=== PATIENT | female | born 1985 | race African-American/Black ===

== ENCOUNTER 2018-10-18 22:56 | Emergency (ER) | payer MEDICAID ==
[~2018-10-18] VITALS: Ht 167.6 cm; Wt 64.0 kg
[2018-10-18 22:57] VITALS: BP 146/72
== END 2018-10-19 01:28 | disposition home or self-care (01) ==
LOC: ER 23:25
DX: Z76.89 Persons encountering health services in other specified circumstances (principal); R03.0 Elevated blood-pressure reading, without diagnosis of hypertension
CPT/HCPCS: 99283

== ENCOUNTER 2019-03-07 06:15 | Emergency (ER) | payer MEDICAID ==
[~2019-03-07] VITALS: Ht 165.1 cm; Wt 70.0 kg
[2019-03-07 07:25] VITALS: BP 99/75
[2019-03-07] MEDS ORDERED: LEVETIRACETAM 1000MG/100ML 100 ML IV ONE (07:30)
== END 2019-03-07 07:50 | disposition left against medical advice (07) ==
LOC: ER 06:15
DX: G40.909 Epilepsy, unspecified, not intractable, without status epilepticus (principal); R22.0 Localized swelling, mass and lump, head; Z91.81 History of falling
CPT/HCPCS: 99283

== ENCOUNTER 2019-03-07 13:49 | Emergency (ER) | payer MEDICAID ==
[~2019-03-07] VITALS: Ht 165.1 cm; Wt 76.0 kg
[2019-03-07 13:54] VITALS: BP 129/79
== END 2019-03-07 15:46 | disposition left against medical advice (07) ==
LOC: ER 13:49
DX: Z53.21 Procedure and treatment not carried out due to patient leaving prior to being seen by health care provider (principal)

== ENCOUNTER 2019-04-19 22:41 | Emergency (ER) | payer MEDICAID ==
[~2019-04-19] VITALS: Ht 170.2 cm; Wt 72.0 kg
[2019-04-19 23:34] LABS: BASOPHILS % 0.9 % (0.0-2.0); EOSINOPHILS % 0.8 % (0.0-5.0); HEMATOCRIT. 40.2 % (36.0-48.0); HEMOGLOBIN. 13.3 g/dL (12.0-16.0); LYMPHOCYTES % 21.2 % (20.0-50.0); MEAN CORPUSCULAR HEMOGLOBIN 30.9 pg (28.0-32.0); MEAN CORPUSCULAR VOLUME 93.1 fL (81.0-99.0); MEAN PLATELET VOLUME 8.3 fl (7.4-10.4); MONOCYTES % 13.2 % (2.0-8.0); NEUTROPHILS % 63.9 % (40.0-76.0); PLATELET 300 x1000/uL (130-400); RED BLOOD CELL COUNT 4.31 mill/uL (4.2-5.4); RED CELL DISTRIBUTION WIDTH 13.9 % (11.6-14.6)
[2019-04-19 23:43] LABS: CLARITY URINE CLEAR (CLEAR); COLOR URINE YELLOW (YELLOW); KETONES URINE 2+ (NEGATIVE); LEUKOCYTE ESTERASE URINE NEGATIVE (NEGATIVE); NITRITE URINE NEGATIVE (NEGATIVE); OCCULT BLOOD URINE NEGATIVE (NEGATIVE); PROTEIN URINE NEGATIVE (NEGATIVE); SPECIFIC GRAVITY URINE 1.024 (1.005-1.030); UROBILINOGEN URINE 0.2 E.U./dL (0.2-1.0)
[2019-04-19 23:52] LABS: CHLORIDE 110 mEq/L (98-107)
[2019-04-19 23:56] LABS: ETHANOL BLOOD < 10 mg/dL
[2019-04-20] MEDS ORDERED: LEVETIRACETAM 500MG TABLET PO ONE (00:30)
[2019-04-20 02:50] LABS: *AMPHETAMINES SCREEN URINE NEGATIVE (NEGATIVE); *BARBITURATES SCREEN URINE NEGATIVE (NEGATIVE); *BENZODIAZEPINES SCREEN URINE NEGATIVE (NEGATIVE); *COCAINE SCREEN URINE NEGATIVE (NEGATIVE)
[2019-04-20 02:51] LABS: METHADONE URINE SCREEN NEGATIVE (NEGATIVE); OPIATES URINE SCREEN NEGATIVE (NEGATIVE); PHENCYCLIDINE URINE SCREEN NEGATIVE (NEGATIVE)
[2019-04-20 03:07] LABS: CANNABINOID URINE SCREEN PRESUMTIVE POSITIVE (NEGATIVE)
[2019-04-20 03:27] VITALS: BP 100/52
== END 2019-04-20 05:36 | disposition home or self-care (01) ==
LOC: ER 22:41
DX: G40.909 Epilepsy, unspecified, not intractable, without status epilepticus (principal)
CPT/HCPCS: 36415; 80053; 80185; 80305; 80320; 81003; 81025; 82542; 82962; 85025; 99283; G0480

== ENCOUNTER 2019-05-18 08:12 | Emergency (ER) | payer MEDICAID ==
[~2019-05-18] VITALS: Ht 167.6 cm; Wt 54.0 kg
[2019-05-18] MEDS ORDERED: SODIUM CHLORIDE 0.9% 1,000 ML IV ONE (09:11)
[2019-05-18] MEDS ORDERED: LEVETIRACETAM 1000MG/100ML 100 ML IV ONE ×2 (09:15→11:00)
[2019-05-18 09:30] VITALS: BP 130/81
[2019-05-18 09:40] LABS: CLARITY URINE CLEAR (CLEAR); COLOR URINE YELLOW (YELLOW); KETONES URINE NEGATIVE (NEGATIVE); LEUKOCYTE ESTERASE URINE NEGATIVE (NEGATIVE); NITRITE URINE NEGATIVE (NEGATIVE); OCCULT BLOOD URINE NEGATIVE (NEGATIVE); PH URINE 6.5 (4.5-8.0); PROTEIN URINE NEGATIVE (NEGATIVE); SPECIFIC GRAVITY URINE 1.021 (1.005-1.030); UROBILINOGEN URINE 0.2 E.U./dL (0.2-1.0)
[2019-05-18 09:48] LABS: BASOPHILS % 0.5 % (0.0-2.0); EOSINOPHILS % 0.2 % (0.0-5.0); HEMATOCRIT. 36.8 % (36.0-48.0); HEMOGLOBIN. 12.7 g/dL (12.0-16.0); LYMPHOCYTES % 12.9 % (20.0-50.0); MEAN CORPUSCULAR HEMOGLOBIN 31.9 pg (28.0-32.0); MEAN CORPUSCULAR VOLUME 92.6 fL (81.0-99.0); MEAN PLATELET VOLUME 7.6 fl (7.4-10.4); MONOCYTES % 6.1 % (2.0-8.0); NEUTROPHILS % 80.3 % (40.0-76.0); PLATELET 324 x1000/uL (130-400); RED BLOOD CELL COUNT 3.97 mill/uL (4.2-5.4); RED CELL DISTRIBUTION WIDTH 13.9 % (11.6-14.6)
[2019-05-18 09:53] LABS: *AMPHETAMINES SCREEN URINE NEGATIVE (NEGATIVE); *BARBITURATES SCREEN URINE NEGATIVE (NEGATIVE); *BENZODIAZEPINES SCREEN URINE NEGATIVE (NEGATIVE); *COCAINE SCREEN URINE NEGATIVE (NEGATIVE)
[2019-05-18 09:54] LABS: METHADONE URINE SCREEN NEGATIVE (NEGATIVE); OPIATES URINE SCREEN NEGATIVE (NEGATIVE); PHENCYCLIDINE URINE SCREEN NEGATIVE (NEGATIVE)
[2019-05-18 09:55] LABS: CHLORIDE 110 mEq/L (98-107)
[2019-05-18 09:57] LABS: CANNABINOID URINE SCREEN PRESUMTIVE POSITIVE (NEGATIVE)
[2019-05-18 09:59] LABS: ETHANOL BLOOD < 10 mg/dL
[2019-05-18 10:04] LABS: HCG SCREEN NEGATIVE
[2019-05-18 10:06] LABS: B-HCG QUANTITATIVE < 1 mIU/mL (<3)
[2019-05-18] MEDS ORDERED: KETOROLAC 30MG/ML VIAL IV ONE (11:30)
== END 2019-05-18 13:57 | disposition left against medical advice (07) ==
LOC: ER 08:18
DX: R56.9 Unspecified convulsions (principal); M54.2 Cervicalgia; F12.10 Cannabis abuse, uncomplicated
CPT/HCPCS: 36415; 70486; 72125; 80053; 80305; 80320; 81003; 81025; 84702; 84703; 85025; 96365; 96375; 99285; J1885; J1953; J7030; G0480

== ENCOUNTER 2019-05-22 22:28 | Emergency (ER) | payer MEDICAID ==
[~2019-05-22] VITALS: Ht 172.7 cm; Wt 100.0 kg
[2019-05-22] MEDS ORDERED: LEVETIRACETAM 500MG TABLET PO ONE (23:00)
[2019-05-23 00:05] VITALS: BP 131/81
== END 2019-05-23 00:09 | disposition home or self-care (01) ==
LOC: ER 22:28
DX: G40.909 Epilepsy, unspecified, not intractable, without status epilepticus (principal); Z90.49 Acquired absence of other specified parts of digestive tract
CPT/HCPCS: 99283

== ENCOUNTER 2021-02-18 14:54 | Emergency (ER) | payer MEDICAID ==
[~2021-02-18] VITALS: Ht 157.5 cm; Wt 60.0 kg
[2021-02-18 14:58] VITALS: BP 116/70
[2021-02-18] MEDS ORDERED: LEVETIRACETAM 500MG TABLET PO ONE (15:45)
== END 2021-02-18 16:25 | disposition left against medical advice (07) ==
LOC: ER 14:54
DX: G40.909 Epilepsy, unspecified, not intractable, without status epilepticus (principal); R94.31 Abnormal electrocardiogram [ECG] [EKG]; Z91.14 Patient's other noncompliance with medication regimen
CPT/HCPCS: 93005; 99283

== ENCOUNTER 2024-09-29 13:36 | Inpatient (IN) | payer MEDICAID ==
[~2024-09-29] VITALS: Ht 160 cm; Wt 55.8 kg
[2024-09-29 13:38] VITALS: O2SAT 99
[2024-09-29] MEDS ORDERED: LEVETIRACETAM 500MG/5ML CUP PO ONE (14:00)
[2024-09-29] MEDS: LAMOTRIGINE 100MG TABLET PO SCH (14:23)
[2024-09-29 14:24] LABS: BASOPHILS % 0.5 % (0.0-2.0); EOSINOPHILS % 0.8 % (0.0-5.0); HEMATOCRIT. 39.2 % (36.0-48.0); HEMOGLOBIN. 13.2 g/dL (12.0-16.0); LYMPHOCYTES % 17.7 % (20.0-50.0); MEAN PLATELET VOLUME 8.0 fl (7.4-10.4); MONOCYTES % 6.2 % (2.0-8.0); NEUTROPHILS % 74.8 % (40.0-76.0); PLATELET 286 x1000/uL (130-400); RED BLOOD CELL COUNT 4.08 mill/uL (4.2-5.4); RED CELL DISTRIBUTION WIDTH 13.2 % (11.6-14.6)
[2024-09-29] MEDS: LEVETIRACETAM 500MG/5ML CUP PO SCH (14:49)
[2024-09-29 14:50] LABS: HCG SCREEN NEGATIVE
[2024-09-29 14:51] LABS: CREATININE 1.1 mg/dL (0.6-1.0); UREA NITROGEN BLOOD 15 mg/dL (9-23)
[2024-09-29 14:53] LABS: ASPARTATE AMINOTRANSFERASE 20 IU/L (<34)
[2024-09-29 14:54] LABS: BILIRUBIN TOTAL 0.5 mg/dL (0.1-1.0); PROTEIN TOTAL 7.4 g/dL (6.0-8.3)
[2024-09-29] MEDS: KETOROLAC 30MG/ML VIAL IM ONE (15:40)
[2024-09-29 20:00] VITALS: BP 95/51; PULSE 66; RESP 20; TEMP 36.4; O2SAT 100
[2024-09-29] MEDS ORDERED: GUAIFENESIN 200MG/10ML SUGAR FREE UDC PO PRN (21:30)
[2024-09-29] MEDS ORDERED: CLONIDINE 0.1MG TABLET PO PRN (21:30)
[2024-09-29] MEDS ORDERED: DEXTROSE 50% WATER 50ML SYRINGE IV PRN (21:30)
[2024-09-29] MEDS ORDERED: POLYETHYLENE GLYCOL 3350 (17GM) 1 DOSE PACK PO PRN (21:30)
[2024-09-29] MEDS ORDERED: IPRATROPIUM/ALBUTEROL 0.5-3(2.5)MG/3ML NEB HHN PRN (21:30)
[2024-09-29] MEDS ORDERED: ACETAMINOPHEN 325MG TABLET PO PRN (21:30)
[2024-09-29] MEDS ORDERED: MAGNESIUM/ALUMINUM HYDROXIDE/SIMETHICONE 30ML UDC PO PRN (21:30)
[2024-09-29] MEDS ORDERED: KETOROLAC 15MG/ML VIAL IV PRN (21:45)
[2024-09-29] MEDS: DIPHENHYDRAMINE 50MG/ML VIAL IV NR (23:43)
[2024-09-30] VITALS: BP 99/50; PULSE 63; RESP 19; TEMP 36.3; O2SAT 100
[2024-09-30] MEDS: SODIUM CHLORIDE 0.9% 1,000 ML IV ONE (04:08)
[2024-09-30 05:22] VITALS: BP 96/51; PULSE 66; RESP 20; TEMP 36.4
[2024-09-30] MEDS: BLOOD SUGAR DIAGNOSTIC STRIP TEST SCH (07:20)
[2024-09-30] MEDS: INSULIN LISPRO 100 UNITS/ML SUBCUT SCH (07:50)
[2024-09-30 08:00] VITALS: BP 100/61; PULSE 58; RESP 18; TEMP 36.4; O2SAT 100
[2024-09-30] MEDS ORDERED: LEVETIRACETAM 1,000MG in NACL 100ML PREMIX IV SCH (09:00)
[2024-09-30] MEDS: SODIUM CHLORIDE 0.9% 1,000 ML IV SCH (09:30)
[2024-09-30] MEDS: LEVETIRACETAM 1000MG PREMIX 100 ML IV SCH (09:49)
[2024-09-30 12:00] VITALS: BP 114/61; PULSE 62; RESP 20; TEMP 36.4; O2SAT 100
[2024-09-30 14:57] VITALS: BP 111/62; PULSE 80; RESP 18; O2SAT 100
[2024-09-30] MEDS: LAMOTRIGINE 100MG TABLET PO SCH (15:21)
[2024-09-30] MEDS: ACETAMINOPHEN 325MG TABLET PO PRN (15:58)
[2024-09-30 19:08] LABS: CREATININE 1.0 mg/dL (0.6-1.0); UREA NITROGEN BLOOD 13 mg/dL (9-23)
[2024-09-30 20:00] VITALS: BP 101/68; PULSE 80; RESP 16; TEMP 36.8; O2SAT 100
[2024-10-01] VITALS: BP 92/47; PULSE 67; RESP 17; TEMP 36.7; O2SAT 100
[2024-10-01 04:00] VITALS: BP 97/53; PULSE 75; RESP 18; TEMP 36.4; O2SAT 100
[2024-10-01] MEDS: HYDROXYZINE 25MG TABLET PO PRN (04:23)
[2024-10-01 07:31] LABS: PLATELET 246 x1000/uL (130-400); RED BLOOD CELL COUNT 3.57 mill/uL (4.2-5.4); RED CELL DISTRIBUTION WIDTH 12.9 % (11.6-14.6)
[2024-10-01 08:00] VITALS: BP 113/62; PULSE 75; RESP 19; TEMP 36.7; O2SAT 100
[2024-10-01 08:29] LABS: CREATININE 1.1 mg/dL (0.6-1.0)
[2024-10-01 08:30] LABS: UREA NITROGEN BLOOD 10 mg/dL (9-23)
[2024-10-01 08:32] LABS: PHOSPHORUS 2.4 mg/dL (2.5-4.9)
[2024-10-01] MEDS: ONDANSETRON HCL 4MG/2ML INJ IV PRN (13:40)
[2024-10-01 16:00] VITALS: BP 86/44; PULSE 76; RESP 19; TEMP 36.7; O2SAT 100
[2024-10-01 20:00] VITALS: BP 116/80; PULSE 63; RESP 18; TEMP 36.4; O2SAT 100
[2024-10-02] VITALS: BP 95/49; PULSE 63; RESP 18; TEMP 36.4; O2SAT 100
[2024-10-02 04:00] VITALS: BP 111/68; PULSE 71; RESP 19; TEMP 36.4; O2SAT 100
[2024-10-02 07:50] LABS: PLATELET 273 x1000/uL (130-400); RED BLOOD CELL COUNT 3.80 mill/uL (4.2-5.4); RED CELL DISTRIBUTION WIDTH 13.0 % (11.6-14.6)
[2024-10-02 08:00] VITALS: BP 104/58; PULSE 71; RESP 19; TEMP 36.9; O2SAT 100
[2024-10-02 08:21] LABS: CREATININE 1.1 mg/dL (0.6-1.0); UREA NITROGEN BLOOD 7 mg/dL (9-23)
[2024-10-02 12:00] VITALS: BP 118/80; PULSE 69; RESP 20; TEMP 36.4; O2SAT 98
[2024-10-02 16:00] VITALS: BP 110/60; PULSE 75; RESP 18; TEMP 36.4; O2SAT 91
[2024-10-02 20:00] VITALS: BP 120/74; PULSE 76; RESP 18; TEMP 37.1; O2SAT 99
[2024-10-03] VITALS: BP 102/53; PULSE 79; RESP 18; TEMP 37.1; O2SAT 98
[2024-10-03 04:00] VITALS: BP 99/61; PULSE 75; RESP 20; TEMP 36.7; O2SAT 75
[2024-10-03] MEDS: LORAZEPAM 2MG/ML UD SYRINGE IV PRN (04:28)
[2024-10-03 08:00] VITALS: BP 97/65; PULSE 87; RESP 19; TEMP 36.7; O2SAT 100
== END 2024-10-03 13:00 | disposition left against medical advice (07) | DRG 53 ==
LOC: ER 13:38 → EDBEDREQ 16:11 → 6EST 16:50 → EDBEDREQ 16:52 → ENRESERV 17:22 → 5WST 09-30 15:31
PROVIDERS: ADMIT Internal Medicine; ATTEND Internal Medicine
PROC: 4A00X4Z Measurement of Central Nervous Electrical Activity, External Approach (ICD-10-PCS; principal; 2024-10-02)
DX: G40.909 Epilepsy, unspecified, not intractable, without status epilepticus (principal); E11.9 Type 2 diabetes mellitus without complications; M79.10 Myalgia, unspecified site; F32.A Depression, unspecified; Z53.29 Procedure and treatment not carried out because of patient's decision for other reasons; Z63.4 Disappearance and death of family member; Z91.148 Patient's other noncompliance with medication regimen for other reason; Z79.899 Other long term (current) drug therapy
CPT/HCPCS: 36415; 71045; 72170; 73560; 80048; 80053; 82550; 82962; 83036; 83605; 83735; 84100; 84145; 84703; 85025; 85027; 93005; 95816; 99285; A4606; J1200; J1815; J1885; J1953; J2060; J2405; J7030